=== PATIENT | female | born 1950 | race Caucasian/White ===

== ENCOUNTER 2024-04-08 09:13 | Emergency (ER) | payer BC ==
[~2024-04-08] VITALS: Ht 162.6 cm; Wt 91.8 kg
[2024-04-08 09:16] VITALS: TEMP 97.7
[2024-04-08] MEDS ORDERED: AMOX-117 PO (09:59)
[2024-04-08] MEDS ORDERED: OFLO5DRO5 LEFT EAR (09:59)
[2024-04-08 10:03] VITALS: BP 150/82; PULSE 62; RESP 16; O2SAT 98
== END 2024-04-08 10:09 | disposition home or self-care (01) ==
LOC: ER 09:14
DX: H66.012 Acute suppurative otitis media with spontaneous rupture of ear drum, left ear (principal); Z88.2 Allergy status to sulfonamides; Z79.2 Long term (current) use of antibiotics
CPT/HCPCS: 99283

== ENCOUNTER 2025-03-01 16:05 | Inpatient (IN) | payer BC ==
[~2025-03-01] VITALS: Ht 162.6 cm; Wt 108.0 kg
[~2025-03-01 16:05] MED LIST: OFLO5DRO5 LEFT EAR
--- NOTE | 2025-03-01 16:24 | ELECTROCARDIOGRAPH REPORT ---
[facility] Test Date: 2025-03-01 Test Time: 16:20:51 Pat Name: FEROZ ARRIOLA Department: [facility]- Patient ID: [id number] Room: [place] [address] Gender: F Change Management Director: : 1950 Requested By: BRUNA FIGUEROA Order Number: [id number] Reading MD: Dr. Malcolm Lazo Measurements Intervals [place] Rate: 89 P: 54 VA: 159 QRS: 6 QRSD: 106 T: -3 QT: 385 QTc: 469 Interpretive Statements Sinus rhythm Ventricular bigeminy Borderline repolarization abnormality Electronically Signed On 03-03-2025 19:28:[address] Malcolm Lazo Please click the below link to view image of tracing.
[2025-03-01 16:33] LABS: MEAN PLATELET VOLUME 7.9 FL (7.4-10.4); RED CELL DISTRIBUTION WIDTH 13.5 % (11.5-14.5)
--- NOTE | 2025-03-01 16:53 | RADIOLOGY REPORT ---
CHEST RADIOGRAPH Indication: CP Technique: Single frontal view of the chest was obtained COMPARISON: None FINDINGS: Lines and Tubes: None Lungs: Clear Pleura: No effusion. No pneumothorax. Cardiomediastinal contours: Unremarkable Bones: Unremarkable IMPRESSION: No acute disease.
[2025-03-01 16:59] LABS: CREATININE 1.39 MG/DL (0.40-0.90); PRO BRAIN NATRIURETIC PEPTIDE 2354 PG/ML (0-125); TOTAL CARBON DIOXIDE 27.9 MMOL/L (24-32); eCRCL 31 ML/MIN; eGFR 37 ML/MIN
--- NOTE | 2025-03-01 17:19 | Physician Documentation ---
History of Present Illness ~ Chief Complaint: Leg Pain Stated Complaint: POSS BLOOD CLOT Time Seen by MD: 17:02 Source: patient, family Mode of Arrival: POV Exam Limitations: no limitations HPI With a history of hypertension in with left lower leg swelling and pain over the past 2 days. Five days ago she was on vacation at the [facility] and she did trip and fall and hit her head. No loss of consciousness. She had a large goose egg though. Several days ago she and her drove home from the [facility] about 4- 1/2 hours in the car. Over the past 2 days she has had swelling in the leg. Y morning she passed out. She has never done that before. She feels like she normally drinks plenty of water but she has not drank a lot of water today. No drug tobacco or alcohol use. Medication Reconciliation Allergies: Coded Allergies: Sulfa (Sulfonamide Antibiotics) (Unverified Allergy, Unknown, 03/01/25) Scheduled Ofloxacin (Ofloxacin), 5 DROP LEFT EAR Q12H Review of Systems All Other Systems at this time: Reviewed and Negative Physical Exam Vital Signs: Temperature: 97.6, Source: Temporal, Heart Rate: 88, Respiratory Rate: 16, BP: 147/55, Pulse Oximetry: 95, Weight: 92.300 Oxygen Flow Rate: 0 General Appearance: alert, WD/WN Head: normal inspection Neck: non-tender, full range of motion, normal alignment Respiratory: lungs clear, normal breath sounds, no respiratory distress Chest: no accessory muscle use Cardiovascular: normal peripheral pulses, regular rate, rhythm, no murmur Gastrointestinal: normal palpation, non-tender Legs Left lower leg: Moderate swelling circumferentially around the entire lower leg, tender, soft, trace erythema, good pulses and sensation Distal Function: no motor deficit, no sensory deficit Skin: normal color, warm/dry Lymphatic: normal inspection Neurologic: oriented x4, memory intact Psychiatric: normal mood/affect Progress Progress Note Patient in with extensive left-sided DVT from the groin down to the ankle. CT angio of the chest is pending. Labs unremarkable. Patient is hemodynamically stable. Head CT is pending. If head CT is negative will start heparin drip. Discussed with the hospitalist team who will accept if head CT is negative. Otherwise patient will be transfer. Transfer will be completed by Dr. Machuca if needed. Results/Orders Results/Orders Orders - BRUNA FIGUEROA MD Chest,Single View (03/01/25 16:44) Monitor (03/01/25 16:17) Saline Lock (03/01/25 16:17) Oxygen (03/01/25 16:17) Hs Troponin I W Calculations (03/01/25 18:17) Hs Troponin I W Calculations (03/01/25 19:17) Ct Head (03/01/25 17:11) Cta Chest Pe (03/01/25 ) Vl Venous (03/01/25 17:13) * Orthostatic Vitals* Q12H (03/01/25 17:14) Page Hospitalist (03/01/25 ) Pt Inr (03/01/25 17:51) PTT (03/01/25 17:51) Heparin 10,000 Unit/Ml 1ml (Heparin 10,0 (03/01/25 17:55) Heparin 25,000 Unit/250ml Bag (Heparin 2 (03/01/25 17:55) Heparin 10,000 Unit/Ml 1ml (Heparin 10,0 (03/01/25 17:55) Completed Orders - BRUNA FIGUEROA MD Chest,Single View (03/01/25 16:44) Cbc/Diff (03/01/25 16:17) BMP (03/01/25 16:17) PBNP (03/01/25 16:17) Electrocardiogram (03/01/25 16:17) Hs Troponin I W Calculations (03/01/25 16:17) Ct Head (03/01/25 17:11) Vl Venous (03/01/25 17:13) Iohexol 350mg/Ml 100ml (Omnipaque 350mg/ (03/01/25 17:34) Heparin 10,000 Unit/Ml 1ml (Heparin 10,0 (03/01/25 17:55) Heparin 25,000 Unit/250ml Bag (Heparin 2 (03/01/25 17:55) Heparin 10,000 Unit/Ml 1ml (Heparin 10,0 (03/01/25 17:55) Vital Signs 03/01/25 16:12 Temp 97.6 Pulse 88 Resp 16 B/P (MAP) 147/55 Pulse Ox 95 O2 Flow Rate 0 Laboratory Tests Test 7/30/25 16:25 White Blood Count 11.9 H Red Blood Count 4.67 Hemoglobin 14.1 Hematocrit 42.0 Mean Corpuscular Volume 90.0 Mean Corpuscular Hemoglobin 30.2 Mean Corpuscular Hemoglobin Concent 33.6 Red Cell Distribution Width 13.5 Platelet Count 263 Mean Platelet Volume 7.9 Neutrophils (%) (Auto) 63.9 Lymphocytes (%) (Auto) 24.4 Monocytes (%) (Auto) 7.7 Eosinophils (%) (Auto) 3.0 Basophils (%) (Auto) 1.0 Neutrophils # (Auto) 7.6 Lymphocytes # (Auto) 2.9 Monocytes # (Auto) 0.9 Eosinophils # (Auto) 0.4 Basophils # (Auto) 0.1 CBC Comment Sodium Level 139 Potassium Level 3.6 Chloride Level 103 Carbon Dioxide Level 27.9 Anion Gap 8 Blood Urea Nitrogen 38 H Creatinine 1.39 H Estimated GFR/1.73 m2 37 BUN/Creatinine Ratio 27.3 H Glucose Level 107 H Calcium Level 8.5 Troponin I High Sensitivity 24 Pro-B-Type Natriuretic Peptide 2354 H Albumin 3.3 L Chemistry Comments EKG/XRAY/CT/US/VASC/MRI EKG : EKG Rate: 89 EKG: NSR, PVC(s), no ST T wave changes Medical Decision Making Additional Comment Differential includes but is not limited to: DVT, pulmonary embolus, intracranial bleed, dehydration, electrolyte derangement, cardiac arrhythmia Departure Impression: Primary Impression: Syncope Qualified Codes: R55 - Syncope and collapse Additional Impression: Left leg DVT Qualified Codes: I82.402 - Acute embolism and thrombosis of unspecified deep veins of left lower extremity Condition: Stable Referrals: NO PRIMARY CARE PROVIDER (PCP) Signature Scribe Signature: No scribe used Attestation: No scribe used BRUNA FIGUEROA MD Mar 01, 2025 17:19
[2025-03-01] MEDS ORDERED: heparin 10,000 units/1 ML INJ IV PRN (17:55)
--- NOTE | 2025-03-01 18:21 | VASCULAR REPORT ---
Technique: Real-time ultrasound imaging, with color Doppler and compression of the bilateral common femoral vein, femoral vein, greater saphenous vein, and popliteal vein. Indication: Left lower extremity swelling Comparison: None Findings: Partially occlusive thrombus within the left common femoral vein Occlusive deep vein thrombosis withi n the left superficial femoral vein along its entire length nearly occlusive thrombus within the left popliteal vein. Occlusive thrombus within the left posterior tibial, peroneal veins. Impression: Extensive deep vein thrombosis of the left lower extremity with partially occlusive thrombus in the l eft common femoral vein, occlusive thrombus within the near entirety of the left superficial femoral, popliteal veins extending into the left posterior tibial / peroneal veins.
--- NOTE | 2025-03-01 18:23 | RADIOLOGY REPORT ---
CLINICAL HISTORY: fall TECHNIQUE: Helical imaging carried out from skull base to vertex without intravenous contrast. This e xam was performed according to our departmental dose optimization program. Up-to-date CT equipment an d radiation dose reduction techniques are utilized as appropriate. CTDIVol: 56.85+ 0.14 mGy DLP: 987.41 mGy-cm WID: COMPARISON: None FINDINGS: Mild cerebral volume loss with concordant prominence of the subarachnoid spaces and ventricles. There is mild patchy low attenuation in the cerebral white matter consistent with nonspecific white matter disease. There is no midline shift or mass effect. The beck white matter interfaces are maintained. The basal cisterns are patent. There is no evidence of acute intracranial hemorrhage or extra-axial fluid raciel ection. There is a left mastoid air cell effusion. The right mastoid air cells and visualized paranas al sinuses are well-aerated. Prior ocular lens replacement. IMPRESSION: No acute intracranial abnormality. Mild cerebral volume loss and mild chronic microvascular ischemic change.
[2025-03-01 18:34] LABS: APTT 24 SECONDS (22-32); INR 1.0 INR
[2025-03-01] MEDS ORDERED: MESSAGE TO NURSING IV ONE (18:45)
[2025-03-01] MEDS: heparin 10,000 units/1 ML INJ IV ONE (19:04)
[2025-03-01] MEDS: heparin 25,000 UNIT/250ml bag 250 ML IV PRN (19:05)
[2025-03-01] MEDS: MESSAGE TO NURSING IV ONE (19:06)
--- NOTE | 2025-03-01 19:08 | RADIOLOGY REPORT ---
EXAM: CT CTA CHEST PE W/ IV CONTRAST History: fall Comparison Study: DI CHEST,SINGLE VIEW on DOS: 03/01/25 TECHNIQUE: A digital child and family counselor image was obtained. During the uneventful, intravenous administration of c ontrast material, multislice data acquisition was obtained through the chest. 3-D postprocessing is performed by technologist including MIP imaging Radiation Dose : CTDI vol 23.27 mGy, DLP 809.93 mGy*cm. Findings: Lungs: The lungs are clear. Pleura: Unremarkable Heart/Great vessels: No cardiomegaly or pericardial effusion. Pulmonary emboli in the bilateral main pulmonary arteries which extend into the a segmental lobar arteries. Possible small saddle embolism. No definite right heart strain. No aortic aneurysm or dissection. Mediastinum: Small hiatal hernia. Unremarkable Soft tissues/Bones: Mild multilevel degenerative changes of the thoracic spine. Cholecystectomy. Impression: 1. Pulmonary emboli in the bilateral main pulmonary arteries which extend into the a segmental lobar arteries. Suggestion of small saddle embolism. 2. No definite right heart strain. Critical Result: Pumonary Emboli Findings discussed with Dr. Machuca at 03/01/2025 07:06 PM, and acknowledged receipt and understandin g of the findings.
[2025-03-01] MEDS ORDERED: ipratropium/albuterol 3ml nebule NEB PRN (19:40)
[2025-03-01] MEDS ORDERED: HYDROcodone/acetaminophen 10/325mg tab PO PRN (19:40)
[2025-03-01] MEDS ORDERED: HYDROcodone/acetaminophen 5mg/325mg tablet PO PRN (19:40)
[2025-03-01] MEDS ORDERED: magnesium sulf-water 2g/50mL 50 ML IV PRN (19:40)
[2025-03-01] MEDS ORDERED: ondansetron/PF 4mg/2ml inj IV PRN (19:40)
[2025-03-01] MEDS ORDERED: potassium Cl 20 mEq SR tablet PO PRN (19:40)
[2025-03-01] MEDS ORDERED: magnesium hydroxide 30ml (MOM) UD suspension PO PRN (19:40)
[2025-03-01] MEDS ORDERED: potassium Cl 40MEQ/1/2NS 520ml 520 ML IV PRN (19:40)
[2025-03-01] MEDS ORDERED: magnesium sulf-water 4G/100mL 100 ML IV PRN (19:40)
[2025-03-01] MEDS ORDERED: mag hydrox/Alum hydrox/simeth 30ml oral suspension PO PRN (19:40)
[2025-03-01] MEDS: PERFLUTREN PROTEIN-A MICROSPHR (Optison) 0.22 MG/ML 3ML VIAL IV ONE (19:40)
[2025-03-01] MEDS: normal saline 1000ml 1,000 ML IV SCH (19:40)
[2025-03-01] MEDS ORDERED: TRIA1CAP88 PO (19:52)
[2025-03-01] MEDS ORDERED: ESCI-8 PO (19:52)
[2025-03-01] MEDS ORDERED: METO-411 PO (19:52)
[2025-03-01] MEDS ORDERED: ATOR40TA72 PO (19:52)
--- NOTE | 2025-03-01 19:58 | HISTORY AND PHYSICAL ---
History & Physical Providers to CC ~ History of Present Illness Reason for Admit\Complaint: Acute left lower extremity edema/syncope History of Present Illness This is a 74-year-old female who her son had previously from a pulmonary embolism presents to ED with a two day history of left lower extremity swelling and tightness. [place] had [place]pped and hit her head however she did not lose consciousness and had a large bump on her forehead [place] [address] and over the last two days she has developed some swelling and tightness as well as some mild erythema of her left lower extremity. Yesterday the patient got up and was walking around in turned around and got dizzy and passed out. Allergies: Coded Allergies: Sulfa (Sulfonamide Antibiotics) (Unverified Allergy, Unknown, 03/01/25) Home Medications Home Medications Active Ofloxacin 0.3 % Drops 5 Drop LEFT EAR Q12H Past Medical History Past Medical History Hypertension Hyperlipidemia Past Surgical History Surgical History Comment Left knee surgery Cholecystectomy Cataract surgery Umbilical hernia repair Family History Family History: FH myocardial infarction male first degree age known FATHER FH: CVA (cerebrovascular accident) FATHER FH: kidney disease MOTHER FH: pulmonary embolism son Past Social History Social History Comment Lifelong nonsmoker, drinks wine occasionally, does not use illicit drugs. Full code status however does not want to remain on life support for an extended period of time ROS ROS Except for positives in the HPI the rest of the 14 point review systems is negative Exam Vitals: Vital Signs Date Time Temp Pulse Resp B/P (MAP) Pulse Ox O2 Delivery O2 Flow Rate FiO2 03/01/25 19:45 88 18 129/80 (96) 97 03/01/25 16:12 97.6 0 General: Gen. No acute distress alert and oriented 4 Lungs clear to ascultation bilaterally, no wheezes rales or rhonchi appreciated Heart normal sinus rhythm no murmurs rubs or clicks noted Abdomen soft nontender bowel sounds are normoactive Lower extremities no clubbing cyanosis, nor edema appreciated right, mild generalized edema mild firm this the posterior calf and mild erythema of the left lower extremity distally Diagnostic Data Last Recorded Lab Results: 03/01/25 1625 03/01/25 1625 Diagnostic Data: Laboratory Tests Test 03/01/25 16:25 Prothrombin Time 10.7 SECONDS (9.0-12.0) INR International Normalized Ratio 1.0 INR Activated Partial Thromboplast Time 24 SECONDS (22-32) Coagulation Comments Advance Care Planning Advanced Care plannin - 30 Minutes Problems: (1) Left leg DVT Status: Acute Additional Plan #left lower extremity DVT Venous ultrasound demonstrated the following findings: Extensive deep vein thrombosis of the left lower extremity with partially occlusive thrombus in the left common femoral vein, occlusive thrombus within the near entirety of the left superficial femoral, popliteal veins extending into the left posterior tibial / peroneal veins. And a heparin drip # small saddle pulmonary embolism CTA of the chest and thorax demonstrated the following findings 1. Pulmonary emboli in the bilateral main pulmonary arteries which extend into the a segmental lobar arteries. Suggestion of small saddle embolism. 2. No definite right heart strain. on a heparin drip Echocardiogram Troponins are negative # syncope CT of the head was negative for any acute infarct or intracranial hemorrhage Echocardiogram Orthostatic vital signs Physical therapy # hypertension Continue metoprolol Hold triamterene hydrochlorothiazide for now # hyperlipidemia Fasting lipid panel Continue atorvastatin # kidney disease Eval for SANCHEZ Daily metabolic panel is ordered I spent a total of 18 minutes on reviewing various resuscitative measures/ ACP with the patient at the time of admission. The patient has decided on full code status however does not want to remain on life support for an extended period of time. Date of Service: Mar 01, 2025 Billing Provider: CARMEN HUSSEIN DO Common Visit Codes: [id number] INP/OBS CARE (HIGH) Secondary Visit Codes: 48528-[id number] CARE PLAN 30 MINUTES Problem Qualifiers (1) Left leg DVT: Affected thrombotic vein of extremity: unspecified vein of extremity C hronicity: acute Qualified Codes: I82.402 - Acute embolism and thrombosis of unspecified deep veins of left lower extremity CARMEN HUSSEIN DO Mar 01, 2025 19:58
[2025-03-01] MEDS: K and/or MAG REPLACEMENT MC SCH (20:00)
[2025-03-01] MEDS: docusate sod 100mg capsule PO SCH (20:00)
[2025-03-01 21:15] VITALS: PULSE 83; RESP 16; O2SAT 94
[2025-03-01 22:01] LABS: LEUKOCYTE ESTERASE ,URINE NEGATIVE (Neg); NITRITES, URINE NEGATIVE (Neg); OCCULT BLOOD,URINE NEGATIVE (Neg)
[2025-03-01 22:07] LABS: UA COLLECTION TYPE CLN CATCH MIDSTREAM
[2025-03-02] VITALS (9 sets, daily range): BP systolic 109–146; BP diastolic 63–87; PULSE 78–94; RESP 17–20; TEMP 97.1–98.1; O2SAT 94–97
[2025-03-02 01:19] LABS: MEAN PLATELET VOLUME 8.2 FL (7.4-10.4); RED CELL DISTRIBUTION WIDTH 13.6 % (11.5-14.5)
[2025-03-02 01:24] LABS: CHOL/HDL RATIO 2.8 (0.00-4.99); CREATININE 1.34 MG/DL (0.40-0.90); LDL CHOLESTEROL 71 MG/DL (50-100); TOTAL CARBON DIOXIDE 28.9 MMOL/L (24-32); eCRCL 32 ML/MIN; eGFR 39 ML/MIN
[2025-03-02] MEDS: MESSAGE TO NURSING IV ONE ×3 (04:25→16:55)
[2025-03-02] MEDS ORDERED: MESSAGE TO NURSING IV ONE (04:25)
[2025-03-02] MEDS: potassium Cl 20 mEq SR tablet PO PRN (07:46)
--- NOTE | 2025-03-02 18:28 | PROGRESS NOTE ---
Daily Progress Note Providers to CC ~ Antibiotic Timeout Antibiotic Ordered?: No Subjective The patient denies dyspnea and is doing well remains on heparin drip and that has no signs of significant right heart strain Objective Vital Signs Date Time Temp Pulse Resp B/P (MAP) Pulse Ox O2 Delivery O2 Flow Rate FiO2 03/02/25 10:41 79 115/87 (96) 86 140/76 (97) 94 135/75 (95) 03/02/25 10:00 97.2 17 94 Room Air 03/01/25 21:15 0 21 Result Diagram: 03/02/25 0105 03/02/25 0045 Gen. No acute distress alert and oriented 4 Lungs clear to ascultation bilaterally, no wheezes rales or rhonchi appreciated Heart normal sinus rhythm no murmurs rubs or clicks noted Abdomen soft nontender bowel sounds are normoactive Lower extremities no clubbing cyanosis, nor edema appreciated on the right, mild edema of the left Coagulation Studies Laboratory Tests Test 03/01/25 16:25 03/02/25 15:19 Prothrombin Time 10.7 SECONDS (9.0-12.0) INR International Normalized Ratio 1.0 INR Activated Partial Thromboplast Time 24 SECONDS (22-32) APTT (Heparin Protocol) 74 SECONDS (45-75) Coagulation Comments Problem\Assessment\Plan Problems/Diagnosis: (1) Left leg DVT This is a 74-year-old female who developed left lower extremity [place] from [place] PE and the patient is really concerned that she could have a DVT. The patient is has a extensive left lower extremity DVT and a small saddle embolus PE. On heparin drip in his doing well #left lower extremity DVT Venous ultrasound demonstrated the following findings: Extensive deep vein thrombosis of the left lower extremity with partially occlusive thrombus in the left common femoral vein, occlusive thrombus within the near entirety of the left superficial femoral, popliteal veins extending into the left posterior tibial / peroneal veins. And a heparin drip # small saddle pulmonary embolism CTA of the chest and thorax demonstrated the following findings 1. Pulmonary emboli in the bilateral main pulmonary arteries which extend into the a segmental lobar arteries. Suggestion of small saddle embolism. 2. No definite right heart strain. on a heparin drip Echocardiogram Troponins are negative Echocardiogram demonstrated an LVEF of 75-80% That has [id number] right sided heart dilatation and mild dysfunction RVSP is 19 that is there was no signs of significant right heart strain # syncope CT of the head was negative for any acute infarct or intracranial hemorrhage Echocardiogram Orthostatic vital signs Physical therapy # hypertension Continue metoprolol Hold triamterene hydrochlorothiazide for now # hyperlipidemia Fasting lipid panel Continue atorvastatin # kidney disease Eval for SANCHEZ Daily metabolic panel is ordered # hypokalemia Potassium replacement protocol Date of Service: Mar 02, 2025 Billing Provider: CARMEN HUSSEIN DO Common Visit Codes: [id number] INP/OBS CARE(HIGH) Problem Qualifiers (1) Left leg DVT: Qualified Codes: I82.402 - Acute embolism and thrombosis of unspecified deep veins of left lower extremity CARMEN HUSSEIN DO Mar 02, 2025 18:28
[2025-03-02] MEDS ORDERED: albuterol 2.5 MG/3 ML nebule NEB PRN (18:55)
--- NOTE | 2025-03-02 19:32 | CARDIOLOGY REPORT ---
APPROVED REPORT EXAM: Comprehensive 2D, Doppler, and color-flow Echocardiogram. Patient Location: 302 Blood Pressure: 109/64 mmHg Heart Rate: 85 bpm Indications Pulmonary Hypertension ProBNP: 2354 Hypertension RECREATIONAL VEHICLE REPAIRER: Zaire Obrien MD Previous ECHO: 01/05/24, CVC, EF: 60-65; tr MR/TR 2D Dimensions LA Diam3.3 cm IVSd 0.8 (0.7-1.1cm) LVDd 4.1 cm PWd 0.9 (0.7-1.1cm) IVSs 1.3 (0.8-1.2cm) LVDs 2.0 (2.5-4.0cm) PWs 1.3 (0.8-1.2cm) LVOT Diameter 2.09 (1.8-2.4cm) LVEF(%) 82.4 (>50%) Ao Asc Diam.2.42 cm IVC 14.75 mmFS (%) 50.7 % SV 62.6 ml CO 5.5 L/min M-Mode Dimensions Left Atrium(MM) 3.48 (2.5-4.0cm) Aortic Root 2.43 (2.2-3.7cm) Aortic Cusp Exc 2.01 (1.5-2.0cm) Aortic Valve AoV Peak Rico. 104.4 cm/s AoV VTI 19.0 cm AO Peak GR. 4.4 mmHg AO Mean GR. 3 mmHg LVOT VTI 14.70 cm LVOT Peak Rico. 68.2 cm/s MAMADOU(VTI)/BSA 2.65 cm2/m2 MAMADOU (VTI) 2.65 cm2 Mitral Valve MV E Velocity 55.1 cm/s MV Peak Gr. 2 mmHg MV DECEL TIME 228 ms MV A Velocity 88.3 cm/s MV PHT 60 ms E/A Ratio 0.6 MVA (PHT) 3.67 cm2 MV VMax67.2 cm/s TDI Lateral E' P. V10.47 cm/s E/Lateral E' 5.3 Tricuspid Valve TR P. Velocity 151 cm/s RAP ESTIMATE 10 mmHg TR Peak Gr. 9 mmHg RVSP 19 mmHg LEFT VENTRICLE Normal LV size and wall thickness. Overall systolic function is normal. LVEF is 75-80%. RIGHT VENTRICLE Right ventricle is mild to moderately dilated with mildly decreased function. ATRIA The left atrium size is normal. AORTIC VALVE Trileaflet AV appears mildly sclerotic without stenosis. No insufficiency. MITRAL VALVE Mild mitral annular calcification without stenosis. Mild regurgitation. TRICUSPID VALVE The tricuspid valve is normal in structure with race regurgitation. PULMONIC VALVE Pulmonic valve is grossly normal in structure with physiologic insufficiency. GREAT VESSELS The aortic root is normal in size. The ascending aorta is normal in size. The IVC is normal in size a nd collapses >50% with inspiration. PERICARDIUM Trivial loculated pericardial effusion without hemodynamic compromise. Other Information Study Quality: Adequate Conclusion Normal LV size and wall thickness. Overall systolic function is normal. LVEF is 75-80%. Right ventricle is mild to moderately dilated with mildly decreased function. The left atrium size is normal. Trileaflet AV appears mildly sclerotic without stenosis. No insufficiency. Mild mitral annular calcification without stenosis. Mild regurgitation. The tricuspid valve is normal in structure with race regurgitation. Trivial loculated pericardial effusion without hemodynamic compromise.
[2025-03-03] VITALS (9 sets, daily range): BP systolic 118–156; BP diastolic 54–83; PULSE 80–89; RESP 13–20; TEMP 97.3–97.7; O2SAT 93–98
[2025-03-03] MEDS: MESSAGE TO NURSING IV ONE ×4 (00:40→22:00)
[2025-03-03] MEDS: metoprolol succinate 25mg (24-HOUR) SR. Tablet PO SCH (07:23)
[2025-03-03] MEDS: ESCITALOPRAM 10 mg tablet 10 MG TABLET PO SCH (07:24)
[2025-03-03] MEDS ORDERED: APIX5TAB5 PO (11:03)
--- NOTE | 2025-03-03 11:33 | PROGRESS NOTE ---
Daily Progress Note Providers to CC ~ Antibiotic Timeout Antibiotic Ordered?: No Subjective No new complaints. Patient is seen resting comfortably Objective Vital Signs Date Time Temp Pulse Resp B/P (MAP) Pulse Ox O2 Delivery O2 Flow Rate FiO2 03/03/25 11:00 97.7 89 16 128/54 (78) 97 Room Air 03/01/25 21:15 0 21 Result Diagram: 03/02/25 0105 03/02/25 0045 Regional dark exam Gen. awake alert oriented asymptomatic HEENT: Normocephalic, atraumatic, pupils round reactive to light and accommodation, extraocular movements are intact, sclera anicteric, conjunctiva pinkish, moist oral mucosa, no rash or ulcers. NECK: Supple, no JVD, trachea midline. CHEST: Clear to auscultation, no wheezes crackles or rhonchi. HEART: Regular rate rhythm, no murmur gallop or rub. ABDOMEN: Soft, nontender, no organomegaly. EXTREMITIES: No cyanosis clubbing or edema. NEURO EXAM: Grossly nonfocal. MUSCULOSKELETAL : No joint swelling or deformities. SKIN: No rash or ulcers noted. Well-healed scar in the left knee. Coagulation Studies Laboratory Tests Test 03/01/25 16:25 03/03/25 05:56 Prothrombin Time 10.7 SECONDS (9.0-12.0) INR International Normalized Ratio 1.0 INR Activated Partial Thromboplast Time 24 SECONDS (22-32) APTT (Heparin Protocol) 97 SECONDS (45-75) H Coagulation Comments Other Results Medications reviewed Problem\Assessment\Plan Problems/Diagnosis: (1) Left leg DVT This is a 74-year-old female who developed left lower extremity edema while driving back from the [facility]. Her son had previously from a PE and the patient was concerned that she could have a DVT. #left lower extremity DVT Venous ultrasound demonstrated the following findings: Extensive deep vein thrombosis of the left lower extremity with partially occlusive thrombus in the left common femoral vein, occlusive thrombus within the near entirety of the left superficial femoral, popliteal veins extending into the left posterior tibial / peroneal veins. And a heparin drip # small saddle pulmonary embolism CTA of the chest and thorax demonstrated the following findings 1. Pulmonary emboli in the bilateral main pulmonary arteries which extend into the a segmental lobar arteries. Suggestion of small saddle embolism. 2. No definite right heart strain. on a heparin drip Echocardiogram Troponins are negative Echocardiogram demonstrated an LVEF of 75-80% That has [id number] right sided heart dilatation and mild dysfunction RVSP is 19 that is there was no signs of significant right heart strain # syncope CT of the head was negative for any acute infarct or intracranial hemorrhage Likey due to PE , No further episodes reported. # Hypertension : Continue metoprolol Triamterene and hydrochlorothiazide on hold for now # Hyperlipidemia :Continue atorvastatin # SANCHEZ Daily metabolic panel is ordered # Hypokalemia :Potassium replacement protocol # Full code Date of Service: Mar 03, 2025 Billing Provider: DORENE ÁLVAREZ MD Common Visit Codes: [id number] INP/OBS CARE(HIGH) Problem Qualifiers (1) Left leg DVT: Qualified Codes: I82.402 - Acute embolism and thrombosis of unspecified deep veins of left lower extremity DORENE ÁLVAREZ MD Mar 03, 2025 11:32
--- NOTE | 2025-03-03 11:34 | DISCHARGE SUMMARY ---
Discharge Summary Providers to CC ~ Discharge Summary Admission Diagnosis: Left lower extremity extensive DVT and small saddle pulmonary embolism Hospital Course DATE OF ADMISSION: 03/01/2025 DATE OF DISCHARGE:03/07/2025 Discharge Diagnosis\Comment: LEFT LEG DVT Operations\Procedures: Echocardiogram Vascular ultrasound Head CT Chest/thorax CTA Consultants: None Complications: None Condition on DC: Stable New Medications: Apixaban (Eliquis) 5 Mg (74 Tabs) Tab.ds.pk 1 TAB PO UD for 30 Days, #74 TAB 0 Refills Continued Medications: Atorvastatin Calcium (Atorvastatin Calcium) 40 Mg Tablet 1 TAB PO DAILY Escitalopram Oxalate (Escitalopram Oxalate) 10 Mg Tablet 1 TAB PO DAILY Metoprolol Succinate (Metoprolol Succinate) 100 Mg Tab.sr.24h 1 TAB PO DAILY Triamterene/Hydrochlorothiazid (Triamterene-Hctz 37.5-25 Mg Cp) 37.5 Mg-25 Mg Capsule 1 CAP PO DAILY Discharge Summary: Reason for admission: 74 years old female who presented to the ER for evaluation of left lower extremity swelling and tightness. Please refer to admission H&P for more details Hospital course: Patient was admitted on monitored floor under hospital course as follows. 1. Left lower extremity DVT/PE in the bilateral main pulmonary arteries sug gestion of small saddle embolus: *Problems/Diagnosis: (1) Left leg DVT Status: Acute Total Time Spent on D/C: > 30 Minutes Problem Qualifiers (1) Left leg DVT: Qualified Codes: I82.402 - Acute embolism and thrombosis of unspecified deep veins of left lower extremity DORENE ÁLVAREZ MD Mar 03, 2025 11:34
[2025-03-04] VITALS (8 sets, daily range): BP systolic 90–115; BP diastolic 46–84; PULSE 66–86; RESP 13–18; TEMP 97.2–98.1; O2SAT 95–99
[2025-03-04] MEDS: MESSAGE TO NURSING IV ONE ×3 (06:53→21:41)
--- NOTE | 2025-03-04 14:13 | PROGRESS NOTE ---
Daily Progress Note Providers to CC ~ Antibiotic Timeout Antibiotic Ordered?: No Subjective No new complaints, patient resting comfortably. Objective Vital Signs Date Time Temp Pulse Resp B/P (MAP) Pulse Ox O2 Delivery O2 Flow Rate FiO2 03/04/25 09:28 13 95 Room Air 03/04/25 06:30 82 03/04/25 06:00 97.7 112/55 (74) 03/01/25 21:15 0 21 Result Diagram: 03/02/25 0105 03/04/25 0508 Regional dark exam Gen. awake alert oriented asymptomatic HEENT: Normocephalic, atraumatic, pupils round reactive to light and accommodation, extraocular movements are intact, sclera anicteric, conjunctiva pinkish, moist oral mucosa, no rash or ulcers. NECK: Supple, no JVD, trachea midline. CHEST: Clear to auscultation, no wheezes crackles or rhonchi. HEART: Regular rate rhythm, no murmur gallop or rub. ABDOMEN: Soft, nontender, no organomegaly. EXTREMITIES: No cyanosis clubbing or edema. NEURO EXAM: Grossly nonfocal. MUSCULOSKELETAL : No joint swelling or deformities. SKIN: No rash or ulcers noted. Well-healed scar in the left knee. Coagulation Studies Laboratory Tests Test 03/01/25 16:25 03/04/25 12:39 Prothrombin Time 10.7 SECONDS (9.0-12.0) INR International Normalized Ratio 1.0 INR Activated Partial Thromboplast Time 24 SECONDS (22-32) APTT (Heparin Protocol) 74 SECONDS (45-75) Coagulation Comments Other Results Medications reviewed Problem\Assessment\Plan Problems/Diagnosis: (1) Left leg DVT This is a 74-year-old female who developed left [place] son had previously from a PE and the patient was concerned that she could have a DVT. # Left lower extremity DVT Venous ultrasound demonstrated the following findings: Extensive deep vein thrombosis of the left lower extremity with partially occlusive thrombus in the left common femoral vein, occlusive thrombus within the near entirety of the left superficial femoral, popliteal veins extending into the left posterior tibial / peroneal veins. And a heparin drip # small saddle pulmonary embolism CTA of the chest and thorax demonstrated the following findings 1. Pulmonary emboli in the bilateral main pulmonary arteries which extend into the a segmental lobar arteries. Suggestion of small saddle embolism. 2. No definite right heart strain. on a heparin drip Echocardiogram Troponins are negative Echocardiogram demonstrated an LVEF of 75-80% That has [id number]-[id number] right sided heart dilatation and mild dysfunction RVSP is 19 that is there was no signs of significant right heart strain # Syncope CT of the head was negative for any acute infarct or intracranial hemorrhage Likey due to PE , No further episodes reported. # Hypertension : Continue metoprolol Triamterene and hydrochlorothiazide on hold for now # Hyperlipidemia :Continue atorvastatin # SANCHEZ Daily metabolic panel is ordered # Hypokalemia :Potassium replaced per protocol # Full code Date of Service: Mar 04, 2025 Billing Provider: DORENE ÁLVAREZ MD Common Visit Codes: [id number] INP/OBS CARE(HIGH) Problem Qualifiers (1) Left leg DVT: Qualified Codes: I82.402 - Acute embolism and thrombosis of unspecified deep veins of left lower extremity DORENE ÁLVAREZ MD Mar 04, 2025 14:13
[2025-03-04 14:33] LABS: MEAN PLATELET VOLUME 8.6 FL (7.4-10.4); RED CELL DISTRIBUTION WIDTH 14.0 % (11.5-14.5)
[2025-03-04 14:38] LABS: CREATININE 1.01 MG/DL (0.40-0.90); TOTAL CARBON DIOXIDE 25.5 MMOL/L (24-32); eCRCL 42 ML/MIN; eGFR 54 ML/MIN
[2025-03-05] VITALS (8 sets, daily range): BP systolic 104–145; BP diastolic 55–84; PULSE 76–91; RESP 14–21; TEMP 97.3–98.1; O2SAT 92–97
[2025-03-05] MEDS: MESSAGE TO NURSING IV ONE ×4 (03:54→23:58)
--- NOTE | 2025-03-05 10:56 | VASCULAR REPORT ---
Clinical History: Known deep vein thrombus Ultrasonic imaging with Duplex Doppler Color Flow and Spectral Analysis was performed on the common f emoral, femoral vein, great saphenous vein, popliteal vein, and posterior tibial veins on the left ex tremity using imaging and pulse Doppler probes on a Duplex ultrasound machine. The venous response t o augmentation and compression was also evaluated. The study was done at the specific request of the treating physician to evaluate blood flow and to evaluate for the presence of thrombosis in the abov e mentioned veins. WID: FINDINGS: There is not compressibility with intraluminal echogenicity within the left common femoral vein, femo ral vein, and popliteal vein. There is non occlusive thrombus noted throughout. There is intraluminal echogenicity within the posterior tibial vein. 1 of the perineal veins appear occlusive. IMPRESSION: 1. Extensive sub occlusive thrombus from the left common femoral vein extending into the tibial veins . Degree of common femoral vein thrombus apears increased when compared to 03/01/25
--- NOTE | 2025-03-05 12:16 | PROGRESS NOTE ---
Daily Progress Note Providers to CC ~ Antibiotic Timeout Antibiotic Ordered?: No Subjective Reported left leg more swollen at the thigh and calf region Objective Vital Signs Date Time Temp Pulse Resp B/P (MAP) Pulse Ox O2 Delivery O2 Flow Rate FiO2 03/05/25 11:00 97.3 80 20 127/62 (83) 97 Room Air 03/01/25 21:15 0 21 Result Diagram: 03/04/25 1239 03/05/25 0255 Gen.Physical Exam : Awake alert oriented asymptomatic HEENT: Normocephalic, atraumatic, pupils round reactive to light and accommodation, extraocular movements are intact, sclera anicteric, conjunctiva pinkish, moist oral mucosa, no rash or ulcers. NECK: Supple, no JVD, trachea midline. CHEST: Clear to auscultation, no wheezes crackles or rhonchi. HEART: Regular rate rhythm, no murmur gallop or rub. ABDOMEN: Soft, nontender, no organomegaly. EXTREMITIES: No cyanosis clubbing Left leg edema noted. NEURO EXAM: Grossly nonfocal. MUSCULOSKELETAL : No joint swelling or deformities. SKIN: No rash or ulcers noted. Well-healed scar in the left knee. Coagulation Studies Laboratory Tests Test 03/01/25 16:25 03/05/25 08:51 Prothrombin Time 10.7 SECONDS (9.0-12.0) INR International Normalized Ratio 1.0 INR Activated Partial Thromboplast Time 24 SECONDS (22-32) APTT (Heparin Protocol) 78 SECONDS (45-75) H Coagulation Comments Other Results Medications reviewed Problem\Assessment\Plan Problems/Diagnosis: (1) Left leg DVT This is a 74-year-old female who developed left [place] had previously from a PE and the patient was concerned that she could have a DVT. # Left lower extremity DVT Venous ultrasound demonstrated the following findings: Extensive deep vein thrombosis of the left lower extremity with partially occlusive thrombus in the left common femoral vein, occlusive thrombus within the near entirety of the left superficial femoral, popliteal veins extending into the left posterior tibial / peroneal veins. And a heparin drip # small saddle pulmonary embolism CTA of the chest and thorax demonstrated the following findings 1. Pulmonary emboli in the bilateral main pulmonary arteries which extend into the a segmental lobar arteries. Suggestion of small saddle embolism. 2. No definite right heart strain. on a heparin drip Echocardiogram Troponins are negative Echocardiogram demonstrated an LVEF of 75-80% That has [id number]-[id number] right sided heart dilatation and mild dysfunction RVSP is 19 that is there was no signs of significant right heart strain Follow up US today Extensive sub occlusive thrombus from the left common femoral vein extending into the tibial veins. Degree of common femoral vein thrombus apears increased when compared to 03/01/25 # Syncope CT of the head was negative for any acute infarct or intracranial hemorrhage Likey due to PE , No further episodes reported. # Hypertension : Continue metoprolol Triamterene and hydrochlorothiazide on hold for now # Hyperlipidemia :Continue atorvastatin # SANCHEZ Daily metabolic panel is ordered # Hypokalemia :Potassium replaced per protocol # Full code Date of Service: Mar 05, 2025 Billing Provider: DORENE ÁLVAREZ MD Common Visit Codes: [id number] INP/OBS CARE(HIGH) Problem Qualifiers (1) Left leg DVT: Qualified Codes: I82.402 - Acute embolism and thrombosis of unspecified deep veins of left lower extremity DORENE ÁLVAREZ MD Mar 05, 2025 12:16
[2025-03-06] VITALS (8 sets, daily range): BP systolic 111–144; BP diastolic 48–84; PULSE 80–89; RESP 13–22; TEMP 96.7–98.6; O2SAT 92–96
[2025-03-06] MEDS: MESSAGE TO NURSING IV ONE ×2 (06:58→12:45)
[2025-03-06 07:45] LABS: MEAN PLATELET VOLUME 8.9 FL (7.4-10.4); RED CELL DISTRIBUTION WIDTH 13.9 % (11.5-14.5)
[2025-03-06 07:59] LABS: CREATININE 1.27 MG/DL (0.40-0.90); TOTAL CARBON DIOXIDE 23.2 MMOL/L (24-32); eCRCL 34 ML/MIN; eGFR 41 ML/MIN
[2025-03-06 08:26] LABS: EOSINOPHILS % (MANUAL) 4.0 % (0-6); LYMPHOCYTES % (MANUAL) 35.0 % (21-51); METAMYLEOCYTES% (MANUAL) 1.0 % (0-0); NEUTROPHILS % (MANUAL) 60.0 % (42-75); PLATELET ESTIMATE NORMAL
--- NOTE | 2025-03-06 12:02 | PROGRESS NOTE ---
Daily Progress Note Providers to CC ~ Antibiotic Timeout Antibiotic Ordered?: No Subjective No new complaints, Reports left leg is more swollen , and has numbness of toes Objective Vital Signs Date Time Temp Pulse Resp B/P (MAP) Pulse Ox O2 Delivery O2 Flow Rate FiO2 03/06/25 08:00 20 94 Room Air 03/06/25 06:00 98.6 80 122/64 (83) Result Diagram: 03/06/25 0542 03/06/25 0542 Gen.Physical Exam : Awake alert oriented asymptomatic HEENT: Normocephalic, atraumatic, pupils round reactive to light and accommodation, extraocular movements are intact, sclera anicteric, conjunctiva pinkish, moist oral mucosa, no rash or ulcers. NECK: Supple, no JVD, trachea midline. CHEST: Clear to auscultation, no wheezes crackles or rhonchi. HEART: Regular rate rhythm, no murmur gallop or rub. ABDOMEN: Soft, nontender, no organomegaly. EXTREMITIES: No cyanosis clubbing Left leg edema noted. NEURO EXAM: Grossly nonfocal. MUSCULOSKELETAL : No joint swelling or deformities. SKIN: No rash or ulcers noted. Well-healed scar in the left knee. Coagulation Studies Laboratory Tests Test 03/01/25 16:25 03/06/25 11:26 Prothrombin Time 10.7 SECONDS (9.0-12.0) INR International Normalized Ratio 1.0 INR Activated Partial Thromboplast Time 24 SECONDS (22-32) Coagulation Comments Other Results Medications reviewed Problem\Assessment\Plan Problems/Diagnosis: (1) Left leg DVT This is a 74-year-old female who developed left [place] son had previously from a PE and the patient was concerned that she could have a DVT. # Left lower extremity DVT Venous ultrasound demonstrated the following findings: Extensive deep vein thrombosis of the left lower extremity with partially occlusive thrombus in the left common femoral vein, occlusive thrombus within the near entirety of the left superficial femoral, popliteal veins extending into the left posterior tibial / peroneal veins. And a heparin drip # small saddle pulmonary embolism CTA of the chest and thorax demonstrated the following findings 1. Pulmonary emboli in the bilateral main pulmonary arteries which extend into the a segmental lobar arteries. Suggestion of small saddle embolism. 2. No definite right heart strain. on a heparin drip Echocardiogram Troponins are negative Echocardiogram demonstrated an LVEF of 75-80% That has [id number]-id-mokcrdnq right sided heart dilatation and mild dysfunction RVSP is 19 that is there was no signs of significant right heart strain Follow up US today Extensive sub occlusive thrombus from the left common femoral vein extending into the tibial veins. Degree of common femoral vein thrombus apears increased when compared to 03/01/25 . Discuss[address] with Dr. Jamey Mae from IR at [facility] . No indication for thrombectomy. Will DC. Heparin and start on SQ lovenox # Syncope CT of the head was negative for any acute infarct or intracranial hemorrhage Likey due to PE , No further episodes reported. # Hypertension : Continue metoprolol Hydralazine IV PRN # Hyperlipidemia :Continue atorvastatin # SANCHEZ Daily metabolic panel is ordered # Hypokalemia :Potassium replaced per protocol # Full code Date of Service: Mar 06, 2025 Billing Provider: DORENE ÁLVAREZ MD Common Visit Codes: [id number] INP/OBS CARE(HIGH) Problem Qualifiers (1) Left leg DVT: Qualified Codes: I82.402 - Acute embolism and thrombosis of unspecified deep veins of left lower extremity DORENE ÁLVAREZ MD Mar 06, 2025 12:02
[2025-03-06] MEDS: enoxaparin 30mg/0.3ml syringe SUBCUT ONE (15:49)
[2025-03-06] MEDS: enoxaparin 30mg/0.3ml syringe SUBCUT SCH (19:55)
[2025-03-06] MEDS: enoxaparin 80mg/0.8ml syringe SUBCUT SCH (19:56)
[2025-03-07 02:00] VITALS: BP 129/64; PULSE 81; RESP 19; TEMP 97; O2SAT 94
[2025-03-07 07:00] VITALS: BP 141/65; PULSE 77; RESP 23; TEMP 98.8; O2SAT 93
[2025-03-07 07:56] LABS: MEAN PLATELET VOLUME 8.0 FL (7.4-10.4); RED CELL DISTRIBUTION WIDTH 13.9 % (11.5-14.5)
[2025-03-07 08:16] LABS: APTT 28 SECONDS (22-32)
[2025-03-07 08:32] LABS: CREATININE 1.03 MG/DL (0.40-0.90); TOTAL CARBON DIOXIDE 26.0 MMOL/L (24-32); eCRCL 41 ML/MIN; eGFR 52 ML/MIN
[2025-03-07 11:00] VITALS: BP 124/59; PULSE 83; RESP 26; TEMP 98.5; O2SAT 93
[2025-03-07] MEDS ORDERED: ENOX40SY7 SQ (11:35)
[2025-03-07 14:52] VITALS: BP 127/68; PULSE 91; RESP 21; TEMP 98.4; O2SAT 96
== END 2025-03-07 16:18 | disposition home or self-care (01) | DRG 299 ==
LOC: ER 16:05 → ED HOLD 19:47 → PCU 3S 03-02 01:00 → UNDODISIN 03-02 13:20
PROVIDERS: ADMIT Family Medicine; ATTEND Family Medicine
PROC: B32T1ZZ Computerized Tomography (CT Scan) of Left Pulmonary Artery using Low Osmolar Contrast (ICD-10-PCS; principal; 2025-03-01)
PROC: B3201ZZ Computerized Tomography (CT Scan) of Thoracic Aorta using Low Osmolar Contrast (ICD-10-PCS; 2025-03-01)
PROC: B32S1ZZ Computerized Tomography (CT Scan) of Right Pulmonary Artery using Low Osmolar Contrast (ICD-10-PCS; 2025-03-01)
DX: I82.412 Acute embolism and thrombosis of left femoral vein (principal); I26.92 Saddle embolus of pulmonary artery without acute cor pulmonale; N17.9 Acute kidney failure, unspecified; E87.6 Hypokalemia; I10 Essential (primary) hypertension; I82.432 Acute embolism and thrombosis of left popliteal vein; I82.442 Acute embolism and thrombosis of left tibial vein; I82.452 Acute embolism and thrombosis of left peroneal vein; E78.5 Hyperlipidemia, unspecified; Z88.2 Allergy status to sulfonamides; Z90.49 Acquired absence of other specified parts of digestive tract; Z84.1 Family history of disorders of kidney and ureter
CPT/HCPCS: 36415; 70450; 71045; 71275; 80048; 80053; 80061; 81003; 83735; 83880; 84132; 84484; 85007; 85025; 85610; 85730; 87081; 93005; 93306; 93971; 94760; 96360; 97161; 97530; 99285; A6258; G0378; J1644; J1650; J7030; Q9967